=== PATIENT | male | born 1970 | race Caucasian/White ===

== ENCOUNTER → 2018-11-06 16:39 | Outpatient (CLI) | payer OTHER, SELFPAY ==
--- NOTE | 2018-11-06 08:50 | COLBX_PTH ---
PATIENT: GASPER DUDLEY LOC: [facility] U#:[id number] AGE/SX: 54/M ROOM: RE11/06/[address]: Dr. Latrell Wolf MD : [id number] BED: DIS: SPEC #: [id number] RECD: 11/06/18 15:25 STATUS: FRANSISCO LYNETTE #: [id number] VAMSHI: 11/06/18 08:[address]: Latrell Wolf DEPT: SURGICAL PATHOLOGY RECD BY: Loco Alarcon ENTERED: 11/09/18 14:47 SP TYPE: COLON BX OTHR DR: Dr. Kayode Ferrari MD [facility] Tissues: A - Transverse colon B - Right colon C - Sigmoid colon biopsy Procedures: Surgery Specimen Level IV HEADER OPERATION: Colonoscopy with biopsies PRE-OP DIAGNOSIS: Screening polyp TISSUE SUBMITTED: A - Transverse colon polyp, rule out adenoma, B - Right colon polyp, rule out adenoma, C - Distal sigmoid polyp, rule out adenoma MICROSCOPIC DIAGNOSIS A. Transverse colon polyp, biopsy: Fragments of tubular adenoma. B. Right colon polyp, biopsy: Fragments of tubular adenoma. C. Distal sigmoid colon polyp, biopsy: Tubular adenoma. AM:[place] 11/10/18 MICROSCOPIC DESCRIPTION Slides are reviewed. GROSS DESCRIPTION A - Received in fixative is one container labeled with the patient's name and designated transverse colon polyp. The specimen consists of a piece of kay-pink polyp measuring 1 x 1 x 0.7 cm. This piece is bisected. Also present in the container are multiple pieces of kay-pink soft tissue measuring in aggregate 1.8 x 0.5 x 0.1 cm. The entire specimen is submitted in one cassette. B - Received in fixative is one container labeled with the patient's name and designated right colon. The specimen consists of multiple irregular fragments of kay-pink soft tissue that in aggregate measure 2.5 x 1 x 0.2 cm. The specimen is totally submitted in one cassette. C - Received in fixative is one container labeled with the patient's name and designated distal sigmoid polyp. The specimen consists of a piece of kay-pink polyp measuring 0.7 x 0.5 x 0.3 cm. The specimen is totally submitted in one cassette. / SJ:[place] 11/09/18 TC:5 CPT: 09443 x3
== END ==
PROVIDERS: Family Provider Family Medicine; PCP Family Medicine; Referring Provider Internal Medicine Gastroenterology; Visit Provider Internal Medicine Gastroenterology
DX: K63.5 Polyp of colon (principal); D12.4 Benign neoplasm of descending colon
CPT/HCPCS: 88305

== ENCOUNTER → 2023-02-14 | Outpatient (CLI) | payer OTHER, SELFPAY ==
--- NOTE | 2023-02-14 09:02 | EKG12_ITS ---
Test Reason : PREOP Blood Pressure : / mmHG Vent. Rate : 055 BPM Atrial Rate : 055 BPM P-R Int : 172 ms QRS Dur : 084 ms QT Int : 408 ms P-R-T Axes : 012 023 058 degrees QTc Int : 390 ms Sinus bradycardia Otherwise normal ECG Confirmed by DEANNE SANCHEZ, OSMAR ([id number]), managing editor BROOKE MURPHY ([id number]) on 02/17/2023 2:14:24 PM Referred By: Manny Hicks Confirmed By:OSMAR ALICEA MD
[2023-02-14 09:26] LABS: Absolute Lymphocyte Count 1.66 X10^3/uL (0.83-4.51); Basophil# 0.05 X10^3/uL; Basophil% 0.9 % (0-1); Eosinophil# 0.06 X10^3/uL; Eosinophils% 1.1 % (0-5); Hematocrit 44.4 % (40-54); Hemoglobin 14.3 g/dL (13.0-16.5); Lymphocyte # 1.66 X10^3/ul (0.83-4.51); Lymphocyte % 29.7 % (19-41); Mean Corp Hgb Conc 32.2 g/dL (32-36); Mean Corpuscular Hgb 29.9 pg (27.0-32.0); Mean Corpuscular Volume 92.7 fL (80-94); Mean Platelet Vol. 11.7 fl (6.2-12.0); Monocyte# 0.84 X10^3/uL; NRBC Flagged by Analyzer 0 % (0-5); Neutrophil # 2.97 X10^3/uL (2.7-7.7); Neutrophil % 53.1 % (47-70); Platelet Count 176 K/mm3 (150-450); RBC Distribution Width CV 12.9 % (11.6-14.6); Red Blood Count 4.79 M/mm3 (4.6-6.2); White Blood Count 5.6 K/mm3 (4.4-11.0)
[2023-02-14 09:49] LABS: Anion Gap 2 (5-15); BUN 13 mg/dL (7-18); BUN/Creat Ratio 12.1 RATIO (10-20); Calcium,Total 9.2 mg/dL (8.5-10.1); Chloride 107 mmol/L (98-107); Creatinine, Serum 1.07 mg/dL (0.70-1.30); EST Glomerular Filtration Rate 76 mL/min (>60); Est Glom Filt Rate - Afr Amer 92 mL/min (>60); Glucose 84 mg/dL (74-106); Potassium 4.1 mmol/L (3.5-5.1); Sodium Level 138 mmol/L (136-145)
== END | disposition home or self-care (01) ==
PROVIDERS: PCP Family Medicine; Referring Provider Student in an Organized Health Care Education/Training Program; Visit Provider Student in an Organized Health Care Education/Training Program
DX: Z01.818 Encounter for other preprocedural examination (principal); Z01.810 Encounter for preprocedural cardiovascular examination
CPT/HCPCS: 36415; 80048; 85025; 93005

== ENCOUNTER → 2024-01-23 | Outpatient (CLI) | payer OTHER, SELFPAY ==
[2024-01-23 15:32] LABS: Anion Gap 7 (5-15); BUN 13 mg/dL (7-18); BUN/Creat Ratio 12.3 RATIO (10-20); Calcium,Total 9.8 mg/dL (8.5-10.1); Chloride 104 mmol/L (98-107); Cholesterol 209 mg/dL (200); Creatinine, Serum 1.06 mg/dL (0.70-1.30); EST Glomerular Filtration Rate 77 mL/min (>60); Est Glom Filt Rate - Afr Amer 93 mL/min (>60); Glucose 96 mg/dL (74-106); High Density Lipoprotein 41 mg/dL; PSA,Total - Annual Screen 0.78 ng/mL (0.00-4.00); Sodium Level 138 mmol/L (136-145); Triglycerides 173 mg/dL; Very Low Density Lipoprotein 35 mg/dL (5-40)
== END | disposition home or self-care (01) ==
LOC: MFPLAB 11:06
PROVIDERS: PCP Family Medicine; Visit Provider Family Medicine
DX: Z00.00 Encounter for general adult medical examination without abnormal findings (principal)
CPT/HCPCS: 36415; 80048; 80061; 84153; G0103

== ENCOUNTER → 2025-04-04 | Outpatient (CLI) | payer OTHER, SELFPAY ==
[2025-04-04 13:16] LABS: Anion Gap 11 (5-15); BUN 16 mg/dL (4-19); BUN/Creat Ratio 15.9 RATIO (10-20); Calcium,Total 9.5 mg/dL (7.6-11.0); Carbon Dioxide 25.4 mmol/L (21.0-32.0); Chloride 100 mmol/L (98-108); Cholesterol 214 mg/dL (<=200); Glucose 87 mg/dL (70-99); Low Density Lipoprotein Calc. 124 mg/dL; Potassium 4.2 mmol/L (3.3-5.1); Triglycerides 279 mg/dL; Very Low Density Lipoprotein 56 mg/dL (5-40); cholesterol:hdl ratio screen 5.19
== END | disposition home or self-care (01) ==
LOC: MFPLAB 09:29
PROVIDERS: PCP Family Medicine; Visit Provider Family Medicine
DX: Z00.00 Encounter for general adult medical examination without abnormal findings (principal)
CPT/HCPCS: 36415; 80048; 80061